=== PATIENT | male | born 1980 | race Hispanic/Latino ===

== ENCOUNTER 2019-02-20 09:21 | Emergency (ER) | payer OTHER ==
--- NOTE | 2019-02-20 09:58 | RAD ---
EXAM: 3 views of the right hand COMPARISON: None HISTORY: Hand pain FINDINGS: 3 views of the right hand shows and oblique fracture through the fifth metacarpal. No dislo cation is seen. IMPRESSION: Right fifth metacarpal fracture
== END 2019-02-20 11:18 | disposition home or self-care (01) ==
LOC: ERS 09:21
DX: S62.336A Displaced fracture of neck of fifth metacarpal bone, right hand, initial encounter for closed fracture (principal); W22.8XXA Striking against or struck by other objects, initial encounter
CPT/HCPCS: 26605